=== PATIENT | male | born 1995 | race African-American/Black ===

== ENCOUNTER 2016-10-28 02:43 | Emergency (ER) | payer OTHER ==
[~2016-10-28] VITALS: Ht 165.1 cm; Wt 80.0 kg
[2016-10-28 02:54] VITALS: BP 137/100; PULSE 89; RESP 16; TEMP 98.4; O2SAT 97
[2016-10-28] MEDS ORDERED: SODIUM CHLORIDE 0.9% FLUSH 5 ML FLUSH IVF PRN (03:15)
--- NOTE | 2016-10-28 04:06 | RADRPT ---
EXAM DATE/TIME: 10/28/2016 03:43 [facility] COMPARISON: No previous studies available for comparison. INDICATIONS : Seizure. RADIATION DOSE: 35.95 CTDIvol (mGy) MEDICAL HISTORY : None SURGICAL HISTORY : None. ENCOUNTER: Initial ACUITY: 1 day PAIN SCALE: 3/10 LOCATION: cranial TECHNIQUE: Multiple contiguous axial images were obtained of the head. Using automated exposure control and adj ustment of the mA and/or kV according to patient size, radiation dose was kept as low as reasonably a chievable to obtain optimal diagnostic quality images. FINDINGS: CEREBRUM: The ventricles are normal for age. No evidence of midline shift, mass lesion, hemorrhage or acute in farction. No extra-axial fluid collections are seen. POSTERIOR FOSSA: The cerebellum and brainstem are intact. The 4th ventricle is midline. The cerebellopontine angle i s unremarkable. EXTRACRANIAL: Moderate severity partial opacification of the ethmoid sinuses. Moderate partial opacification of the right sphenoid sinus. SKULL: The calvaria is intact. No evidence of skull fracture. CONCLUSION: 1. No acute intracranial findings. 2. Bilateral ethmoid sinus disease. Right sided sphenoid sinus disease. Pedro Luis Tinsley MD on October 28, 2016 at 4:01 Board Certified Radiologist. This report was verified electronically.
--- NOTE | 2016-10-28 04:09 | PD ---
HPI Chief Complaint: Seizure Time Seen by Provider: 02:57 Travel History International Travel<30 days: No Contact w/Intl Traveler<30days: No Traveled to known affect area: No History of Present Illness HPI Patient is a 21-year-old male who presents to emergency room for evaluation of possible new onset seizure. Patient reports that he was at home, reports that he was annoyed with his housemates, decided to go to bed. Reports that he went to bed and doesn't know what happened after that. Reports that he woke up with his girlfriend at his side who called EMS. Patient's girlfriend reports that she got on top of him and reports that patient was unconsious and began to shake. Reports that patients whole body was shaking for about 4 minutes and resolved on its own. Patient did not have incontinence of urine at that time of seizure. Reports no history of seizures in the past. Patient reports that he currently has a headache, ports that he has never had a seizure in the past. Patient denies any use of drugs or alcohol tonight. Patient denies fevers or chills, patient reports "I feel fine." PFSH Past Medical History ADHD: No Cancer: No Cardiovascular Problems: No Developmental Delay: No Diabetes: No Diminished Hearing: No Endocrine: No Genitourinary: No Musculoskeletal: Yes (right hand fracture X2, RHABDOMYOLYSIS) Psychiatric: No Reproductive: No Respiratory: No Immunizations Current: Yes Migraines: No Seizures: No Thyroid Disease: No Ulcer: No Tetanus Vaccination: Unknown Influenza Vaccination: No Past Surgical History Oral Surgery: Yes (WISDOM TEETH REMOVED) Tonsillectomy: Yes (T+A) Other Surgery: Yes (left knee surgery) Social History Alcohol Use: Yes (COUPLE TIMES PER MONTH) Tobacco Use: Yes (VAPES) Substance Use: No Allergies-Medications (Allergen,Severity, Reaction): Coded Allergies: No Known Allergies (Verified , 10/28/16) Reported Meds & Prescriptions Reported Meds & Active Scripts Active No Active Prescriptions or Reported Medications Review of Systems General / Constitutional: No: Fever Eyes: No: Visual changes HENT: No: Headaches Cardiovascular: No: Chest Pain or Discomfort Respiratory: No: Shortness of Breath Gastrointestinal: No: Abdominal Pain Genitourinary: No: Dysuria Musculoskeletal: No: Pain Skin: No Rash Neurologic: Positive: Headache, Seizures, No: Weakness Psychiatric: No: Depression Endocrine: No: Polydipsia Hematologic/Lymphatic: No: Easy Bruising Physical Exam Narrative GENERAL: No acute distress, nontoxic SKIN: Warm and dry. HEAD: Atraumatic. Normocephalic. EYES: Pupils equal and round. No scleral icterus. No injection or drainage. ENT: No nasal bleeding or discharge. Mucous membranes pink and moist. NECK: Trachea midline. No JVD. CARDIOVASCULAR: Regular rate and rhythm. No murmur appreciated. RESPIRATORY: No accessory muscle use. Clear to auscultation. Breath sounds equal bilaterally. GASTROINTESTINAL: Abdomen soft, non-tender, nondistended. Hepatic and splenic margins not palpable. MUSCULOSKELETAL: No obvious deformities. No clubbing. No cyanosis. No edema. NEUROLOGICAL: Awake and alert. No obvious cranial nerve deficits. Motor grossly within normal limits. Normal speech. PSYCHIATRIC: Appropriate mood and affect; insight and judgment normal. Data Data Last Documented VS Vital Signs Date Time Temp Pulse Resp B/P Pulse Ox O2 Delivery O2 Flow Rate FiO2 10/28/16 02:54 98.4 89 16 137/100 97 10/28/16 02:50 Room Air Orders Complete Blood Count With Diff (10/28/16 03:13) Drug Screen, Random Urine (10/28/16 03:13) Ct Brain W/O Iv Contrast(Rout) (10/28/16 ) Ecg Monitoring (10/28/16 03:13) Iv Access Insert/Monitor (10/28/16 03:13) Comprehensive Metabolic Panel (10/28/16 03:13) Sodium Chloride 0.9% Flush (Ns Flush) (10/28/16 03:15) Ua Includes Microscopic (10/28/16 03:13) Ketorolac Inj (Toradol Inj) (10/28/16 05:30) Labs Laboratory Tests Test 10/28/16 04:00 White Blood Count 8.6 TH/MM3 Red Blood Count 4.86 MIL/MM3 Hemoglobin 12.8 GM/DL Hematocrit 38.1 % Mean Corpuscular Volume 78.4 FL Mean Corpuscular Hemoglobin 26.4 PG Mean Corpuscular Hemoglobin 33.6 % Concent Red Cell Distribution Width 13.4 % Platelet Count 208 TH/MM3 Mean Platelet Volume 8.6 FL Neutrophils (%) (Auto) 55.0 % Lymphocytes (%) (Auto) 27.1 % Monocytes (%) (Auto) 13.3 % Eosinophils (%) (Auto) 4.1 % Basophils (%) (Auto) 0.5 % Neutrophils # (Auto) 4.7 TH/MM3 Lymphocytes # (Auto) 2.3 TH/MM3 Monocytes # (Auto) 1.1 TH/MM3 Eosinophils # (Auto) 0.4 TH/MM3 Basophils # (Auto) 0.0 TH/MM3 CBC Comment DIFF FINAL Differential Comment Sodium Level 142 MEQ/L Potassium Level 4.5 MEQ/L Chloride Level 106 MEQ/L Carbon Dioxide Level 26.9 MEQ/L Anion Gap 9 MEQ/L Blood Urea Nitrogen 12 MG/DL Creatinine 0.98 MG/DL Estimat Glomerular Filtration 118 ML/MIN Rate Random Glucose 102 MG/DL Calcium Level 9.1 MG/DL Total Bilirubin 0.4 MG/DL Aspartate Amino Transf 26 U/L (AST/SGOT) Alanine Aminotransferase 30 U/L (ALT/SGPT) Alkaline Phosphatase 84 U/L Total Protein 7.1 GM/DL Albumin 3.8 GM/DL MDM Medical Decision Making Medical Screen Exam Complete: Yes Emergency Medical Condition: Yes Interpretation(s) Vital Signs Date Time Temp Pulse Resp B/P Pulse Ox O2 Delivery O2 Flow Rate FiO2 10/28/16 02:54 98.4 89 16 137/100 97 10/28/16 02:50 16 98 Room Air Differential Diagnosis Intracranial hemorrhage, intracranial mass, new onset seizure, electrolyte abnormality, alcohol withdrawal seizures Narrative Course 21-year-old male who presents to emergency room for evaluation of possible new onset seizures. Patient had a witnessed episode by his girlfriend of "whole body shaking" which lasted about 4 minutes. As per girlfriend, patient was unconscious during this event. Patient does not remember this episode, reports no history of seizures in the past. Reports that today, everyone in the house is drinking including his girlfriend, denies taking alcohol today. Reports that he does not know if he had a seizure today, reports only a mild headache. Patient denies any dizziness, fevers or chills or vision changes. Patient denies any chest pain or shortness with this time. Plan to obtain CT of the head as well as labs. We'll monitor patient for seizure activity CBC & BMP Diagram 10/28/16 04:[address] 10/28/16 0000 Signed Impressions: Service Date/Time: Friday, October 28, 2016 03:43 - CONCLUSION: 1. No acute intracranial findings. 2. Bilateral ethmoid sinus disease. Right sided sphenoid sinus disease. Pedro Luis Tinsley MD Reviewed all labs and all studies with patient as well as family in detail. Understands that he should not drive or operate heavy machinery as he may have a seizure event. Understands that he needs to be seen by neurologist and cleared before he drives again. Patient will call for earliest follow-up. Patient will also follow up with his primary care doctor. Patient will return to emergency room as needed. Diagnosis Primary Impression: possible seizure Additional Impression: Headache Qualified Code: R51 - Nonintractable headache, unspecified chronicity pattern , unspecified headache type Referrals: Donis Shelton MD Patient Instructions: General Instructions Departure Forms: Tests/Procedures, Work Release Enter return to work date: Nov 02, 2016 Additional Instructions: Please provide patient with a copy of his labwork and CT report at discharge Please follow up with neurologist first thing as soon as possible Please follow up with your primary care doctor as soon as possible Do not drive a car until you're seen and cleared by neurologist Scripts No Active Prescriptions or Reported Meds Disposition: 01 DISCHARGE HOME Condition: Stable Alejandrina Garza DO Oct 28, 2016 04:09
[2016-10-28 04:11] LABS: AUTOMATED NEUTROPHIL # 4.7 TH/MM3 (1.8-7.7); BASOPHIL % 0.5 % (0.0-2.0); EOSINOPHIL # 0.4 TH/MM3 (0-0.4); EOSINOPHIL % 4.1 % (0.0-4.0); HEMATOCRIT 38.1 % (39.0-51.0); HEMO FLAGS DIFF FINAL; LYMPH % 27.1 % (9.0-44.0); LYMPHOCYTE # 2.3 TH/MM3 (1.0-4.8); MEAN CELL VOLUME 78.4 FL (80.0-100.0); MEAN CORPUSCULAR HEMOGLOBIN 26.4 PG (27.0-34.0); MEAN CORPUSCULAR HGB CONC 33.6 % (32.0-36.0); MONO % 13.3 % (0.0-8.0); PLATELET COUNT 208 TH/MM3 (150-450); RED BLOOD COUNT 4.86 MIL/MM3 (4.50-5.90); RED CELL DISTRIBUTION WIDTH 13.4 % (11.6-17.2); WHITE BLOOD COUNT 8.6 TH/MM3 (4.0-11.0)
[2016-10-28 04:31] LABS: ALKALINE PHOSPHATASE 84 U/L (45-117); TOTAL BILIRUBIN ADULT 0.4 MG/DL (0.2-1.0)
[2016-10-28 04:33] LABS: ALT (GPT) 30 U/L (9-52); ANION GAP 9 MEQ/L (5-15); AST (GOT) 26 U/L (15-39); BICARBONATE 26.9 MEQ/L (21.0-32.0); BLOOD UREA NITROGEN 12 MG/DL (7-18); CHLORIDE 106 MEQ/L (98-107); GLOMERULAR FILTRATION RATE 118 ML/MIN (>89); SODIUM (NA) 142 MEQ/L (136-145)
[2016-10-28 04:36] LABS: POTASSIUM 4.5 MEQ/L (3.5-5.1)
[2016-10-28] MEDS ORDERED: KETOROLAC TROMETHAMINE 30 MG/ML (IVP) VIAL IV PUSH ONE (05:30)
== END 2016-10-28 06:36 | disposition home or self-care (01) ==
LOC: NEPE 02:43
DX: R51 Headache (principal); Z72.0 Tobacco use; Z87.39 Personal history of other diseases of the musculoskeletal system and connective tissue
CPT/HCPCS: 70450; 80053; 85025; 96374; 99285; J1885

== ENCOUNTER 2017-05-09 19:10 | Emergency (ER) | payer SELFPAY ==
[~2017-05-09] VITALS: Ht 175.3 cm; Wt 105.5 kg
[2017-05-09 19:13] VITALS: BP 139/71; PULSE 80; RESP 16; TEMP 98.8; O2SAT 100
--- NOTE | 2017-05-09 20:11 | PD ---
HPI . Right hand pain Chief Complaint: Injury Time Seen by Provider: 19:44 Travel History International Travel<30 days: No Contact w/Intl Traveler<30days: No Traveled to known affect area: No History of Present Illness HPI 21-year-old male patient presented to the emergency department for evaluation of right hand pain. Patient sustained injury when he punched a wall earlier this evening. Patient has sustained a boxer fracture twice in the past to his right hand after punching a wall. Patient states this pain feels exactly like it did with a boxer fracture. Patient has no other physiological complaints. Patient denies chest pain, shortness breath, fever, chills, malaise, paresthesias, abdominal pain, nausea, vomiting or lightheadedness. Right radial pulse palpated. Capillary refill within normal limits. PFSH Past Medical History Medical History: Denies Significant Hx ADHD: No Cancer: No Cardiovascular Problems: No Developmental Delay: No Diabetes: No Diminished Hearing: No Endocrine: No Genitourinary: No Musculoskeletal: Yes (right hand fracture X2, RHABDOMYOLYSIS) Psychiatric: No Reproductive: No Respiratory: No Immunizations Current: Yes Migraines: No Seizures: No Thyroid Disease: No Ulcer: No Past Surgical History Oral Surgery: Yes (WISDOM TEETH REMOVED) Tonsillectomy: Yes (T+A) Other Surgery: Yes (left knee surgery) Social History Alcohol Use: Yes (RARELY) Tobacco Use: Yes Substance Use: No Allergies-Medications (Allergen,Severity, Reaction): Coded Allergies: No Known Allergies (Verified , 05/09/17) Reported Meds & Prescriptions Reported Meds & Active Scripts Active No Active Prescriptions or Reported Medications Review of Systems Except as stated in HPI: all other systems reviewed are Neg Physical Exam Narrative GENERAL: Well-nourished well-developed 21-year-old male in no acute distress SKIN: Focused skin assessment warm/dry. HEAD: Atraumatic. Normocephalic. EYES: Pupils equal and round. No scleral icterus. No injection or drainage. ENT: No nasal bleeding or discharge. Mucous membranes pink and moist. NECK: Trachea midline. No JVD. CARDIOVASCULAR: Regular rate and rhythm. No murmur appreciated. Bilateral radial pulses palpated. Capillary refill within normal limits. RESPIRATORY: No accessory muscle use. Clear to auscultation. Breath sounds equal bilaterally. GASTROINTESTINAL: Abdomen soft, non-tender, nondistended. Hepatic and splenic margins not palpable. MUSCULOSKELETAL: No obvious deformities. No clubbing. No cyanosis. No edema. NEUROLOGICAL: Awake and alert. No obvious cranial nerve deficits. Motor grossly within normal limits. Normal speech. PSYCHIATRIC: Appropriate mood and affect; insight and judgment normal. Data Data Last Documented VS Vital Signs Date Time Temp Pulse Resp B/P (MAP) Pulse Ox O2 Delivery O2 Flow Rate FiO2 05/09/17 19:13 98.8 80 16 139/71 (93) 100 Room Air Orders Orders Hand, Complete ([id number]) (05/09/17 19:40) Ice/Cold Pack (05/09/17 19:44) [facility] Medical Decision Making Medical Screen Exam Complete: Yes Emergency Medical Condition: Yes Medical Record Reviewed: Yes Differential Diagnosis Differential diagnoses include but are not limited to right hand contusion, right hand fracture, wrist fracture Narrative Course 21-year-old black male presents to the emergency department for evaluation of right hand pain. Patient punched a wall earlier this evening and his hand has been painful since. Patient has sustained a boxer's fracture twice in the past from punching garcia. Patient states this pain feels like it did when he had boxer's fracture. Radial pulses palpated bilaterally. Capillary fill within normal limits. Patient denies any paresthesias to the hand. X-ray to the right hand ordered and pending. Ice pack applied to right hand. X-ray to the right hand shows no acute fracture or malalignment. Old fracture noted on x-ray. Patient will be discharged home with instructions for RICE therapy. Diagnosis Primary Impression: Contusion of hand, right Qualified Codes: S60.221A - Contusion of right hand, initial encounter Referrals: Primary Care Physician Patient Instructions: Contusion in Adults (DC), General Instructions Additional Instructions: May use ice, elevation and [id number] ibuprofen to alleviate pain the reduce swelling. Don't punch anymore garcia. Please return to emergency department if your symptoms return or worsen. Follow up with your primary care provider. Scripts No Active Prescriptions or Reported Meds Disposition: 01 DISCHARGE HOME Condition: Stable PippaKaela woodall Bella NUR May 09, 2017 20:11
--- NOTE | 2017-05-09 20:29 | RADRPT ---
EXAM DATE/TIME: 05/09/2017 19:58 [facility] COMPARISON: HAND RIGHT COMPLETE ([id number]), October 16, 2012, 19:54. INDICATIONS : Pain at proximal 5th metacarpal from punching wall. History of old fifth metacarpal fracture. MEDICAL HISTORY : None. SURGICAL HISTORY : None. ENCOUNTER: Initial ACUITY: 1 day PAIN SCORE: 5/10 LOCATION: Right hand FINDINGS: Three view examination of the right hand demonstrates no soft tissue swelling, dislocation, or fractu re. The carpal bones appear intact. There is an old fifth metacarpal fracture. The interphalangeal and metacarpophalangeal joints are intact. Bony mineralization is normal. CONCLUSION: 1. No acute fracture or malalignment. 2. Old fracture deformity of the fifth metacarpal. Demetrius Enrique MD on May 09, 2017 at 20:25 Board Certified Radiologist. This report was verified electronically.
== END 2017-05-09 21:29 | disposition home or self-care (01) ==
LOC: NEPD 19:10
DX: S60.221A Contusion of right hand, initial encounter (principal); W22.01XA Walked into wall, initial encounter; Z72.0 Tobacco use
CPT/HCPCS: 73130; 99283

== ENCOUNTER 2017-05-20 13:19 | Emergency (ER) | payer SELFPAY ==
[~2017-05-20] VITALS: Ht 175.3 cm; Wt 100.0 kg
[2017-05-20 13:21] VITALS: BP 205/103; PULSE 76; RESP 15; TEMP 98.2; O2SAT 98
[2017-05-20 13:56] LABS: AUTOMATED NEUTROPHIL # 4.2 TH/MM3 (1.8-7.7); BASOPHIL % 0.4 % (0.0-2.0); EOSINOPHIL # 0.4 TH/MM3 (0-0.4); EOSINOPHIL % 5.2 % (0.0-4.0); HEMATOCRIT 37.7 % (39.0-51.0); HEMO FLAGS DIFF FINAL; LYMPH % 22.2 % (9.0-44.0); LYMPHOCYTE # 1.5 TH/MM3 (1.0-4.8); MEAN CELL VOLUME 76.9 FL (80.0-100.0); MEAN CORPUSCULAR HEMOGLOBIN 26.4 PG (27.0-34.0); MEAN CORPUSCULAR HGB CONC 34.3 % (32.0-36.0); MONO % 10.4 % (0.0-8.0); NEUT % 61.8 % (16.0-70.0); PLATELET COUNT 252 TH/MM3 (150-450); RED BLOOD COUNT 4.91 MIL/MM3 (4.50-5.90); WHITE BLOOD COUNT 6.9 TH/MM3 (4.0-11.0)
[2017-05-20 14:00] LABS: BLOOD, URINE NEG (NEG); COMMENT (UR) CULTURE INDICATED; CULTURE IF INDICATED CULTURE INDICATED; GLUCOSE,URINE NEG (NEG); KETONE, URINE NEG (NEG); MUCUS URINE FEW /lpf (OCC); NITRITE,URINE NEG (NEG); SQUAMOUS EPITHELIAL CELL URINE <1 /hpf (0-5); URINE COLOR YELLOW (YELLW/STRAW)
[2017-05-20 14:14] LABS: BICARBONATE 28.1 MEQ/L (21.0-32.0); POTASSIUM 3.9 MEQ/L (3.5-5.1)
--- NOTE | 2017-05-20 14:22 | PD ---
HPI Chief Complaint: Complaint Time Seen by Provider: 14:20 Travel History International Travel<30 days: No Contact w/Intl Traveler<30days: No Traveled to known affect area: No History of Present Illness HPI 21 year old male presents to the ED for evaluation of darkened urine and pain with urination. This has been over the last 2-3 days. Denies abdominal pain. No fever or chills. Denies penile discharge. Pt reports being in a monogamous relationship and denies any chance of STD. Reports a history of rabdo, and is concerned because his urine was dark then too. Denies and body aches or other symptoms similar to that diagnosis. Has no other symptoms to report. PFSH Past Medical History Medical History: Denies Significant Hx ADHD: No Cancer: No Cardiovascular Problems: No Developmental Delay: No Diabetes: No Diminished Hearing: No Endocrine: No Genitourinary: No Musculoskeletal: Yes (right hand fracture X2, RHABDOMYOLYSIS) Psychiatric: No Reproductive: No Respiratory: No Immunizations Current: Yes Migraines: No Seizures: No Thyroid Disease: No Ulcer: No Tetanus Vaccination: Unknown Influenza Vaccination: No ?: Not Past Surgical History Oral Surgery: Yes (WISDOM TEETH REMOVED) Tonsillectomy: Yes (T+A) Other Surgery: Yes (left knee surgery) Social History Alcohol Use: Yes (ONCE A DAY) Tobacco Use: Yes Substance Use: No Allergies-Medications (Allergen,Severity, Reaction): Coded Allergies: No Known Allergies (Verified , 05/09/17) Reported Meds & Prescriptions Reported Meds & Active Scripts Active Doxycycline Hyclate 100 Mg Cap 100 Mg PO BID Review of Systems Except as stated in HPI: all other systems reviewed are Neg Physical Exam Narrative GENERAL: Well nourished male pt in no acute distress SKIN: Warm and dry. HEAD: Atraumatic. Normocephalic. EYES: Pupils equal and round. No scleral icterus. No injection or drainage. ENT: No nasal bleeding or discharge. Mucous membranes pink and moist. NECK: Trachea midline. No JVD. CARDIOVASCULAR: Regular rate and rhythm. RESPIRATORY: No accessory muscle use. Clear to auscultation. Breath sounds equal bilaterally. GASTROINTESTINAL: Abdomen soft, non-tender, nondistended. Hepatic and splenic margins not palpable. MUSCULOSKELETAL: Extremities without clubbing, cyanosis, or edema. No obvious deformities. NEUROLOGICAL: Awake and alert. No obvious cranial nerve deficits. Motor grossly within normal limits. Five out of 5 muscle strength in the arms and legs. Normal speech. PSYCHIATRIC: Appropriate mood and affect; insight and judgment normal. Data Data Last Documented VS Vital Signs Date Time Temp Pulse Resp B/P (MAP) Pulse Ox O2 Delivery O2 Flow Rate FiO2 05/20/17 16:16 05/20/17 13:55 18 05/20/17 13:21 98.2 76 98 Orders Orders Creatine Kinase (Cpk) (05/20/17 13:27) Complete Blood Count With Diff (05/20/17 13:27) Basic Metabolic Panel (Bmp) (05/20/17 13:27) Urinalysis - C+S If Indicated (05/20/17:27) Urine Culture (05/20/17 13:30) Iv Access Insert/Monitor (05/20/17 14:21) Sodium Chlor 0.9% 1000 Ml Inj (Ns 1000 M (05/20/17 14:30) Gc And Chlamydia Pcr (05/20/17 14:21) Labs Laboratory Tests Test 05/20/17 13:30 05/20/17 13:40 Urine Color YELLOW Urine Turbidity CLEAR Urine pH 8.0 Urine Specific [place] 1.021 Urine Protein TRACE mg/dL Urine Glucose (UA) NEG mg/dL Urine Ketones NEG mg/dL Urine Occult Blood NEG Urine Nitrite NEG Urine Bilirubin NEG Urine Urobilinogen 2.0 MG/DL Urine Leukocyte Esterase LARGE Urine RBC 6 /hpf Urine WBC 62 /hpf Urine Squamous Epithelial Cells <1 /hpf Urine Mucus FEW /lpf Microscopic Urinalysis Comment CULTURE INDICATED Chlamydia trachomatis DNA (PCR) DETECTED Neisseria gonorrhoeae DNA (PCR) DETECTED White Blood Count 6.9 TH/MM3 Red Blood Count 4.91 MIL/MM3 Hemoglobin 12.9 GM/DL Hematocrit 37.7 % Mean Corpuscular Volume 76.9 FL Mean Corpuscular Hemoglobin 26.4 PG Mean Corpuscular Hemoglobin Concent 34.3 % Red Cell Distribution Width 13.0 % Platelet Count 252 TH/MM3 Mean Platelet Volume 8.5 FL Neutrophils (%) (Auto) 61.8 % Lymphocytes (%) (Auto) 22.2 % Monocytes (%) (Auto) 10.4 % Eosinophils (%) (Auto) 5.2 % Basophils (%) (Auto) 0.4 % Neutrophils # (Auto) 4.2 TH/MM3 Lymphocytes # (Auto) 1.5 TH/MM3 Monocytes # (Auto) 0.7 TH/MM3 Eosinophils # (Auto) 0.4 TH/MM3 Basophils # (Auto) 0.0 TH/MM3 CBC Comment DIFF FINAL Differential Comment Blood Urea Nitrogen 8 MG/DL Creatinine 1.09 MG/DL Random Glucose 113 MG/DL Calcium Level 9.2 MG/DL Sodium Level 140 MEQ/L Potassium Level 3.9 MEQ/L Chloride Level 106 MEQ/L Carbon Dioxide Level 28.1 MEQ/L Anion Gap 6 MEQ/L Estimat Glomerular Filtration Rate 105 ML/MIN Total Creatine Kinase 186 U/L MDM Medical Decision Making Medical Screen Exam Complete: Yes Emergency Medical Condition: Yes Medical Record Reviewed: Yes Differential Diagnosis uti vs std vs renal calculi vs dehydration Narrative Course 21 year old male presents to the ED for evaluation. He appears well. VSS. Abdominal exam benign. Penile exam deferred due to g/f and child in room and insistence that STD is not possible. Laboratory Tests Test 05/20/17 13:30 05/20/17 13:40 Urine Color YELLOW Urine Turbidity CLEAR Urine pH 8.0 Urine Specific [place] 1.021 Urine Protein TRACE mg/dL Urine Glucose (UA) NEG mg/dL Urine Ketones NEG mg/dL Urine Occult Blood NEG Urine Nitrite NEG Urine Bilirubin NEG Urine Urobilinogen 2.0 MG/DL Urine Leukocyte Esterase LARGE Urine RBC 6 /hpf Urine WBC 62 /hpf Urine Squamous Epithelial Cells <1 /hpf Urine Mucus FEW /lpf Microscopic Urinalysis Comment CULTURE INDICATED Chlamydia trachomatis DNA (PCR) DETECTED Neisseria gonorrhoeae DNA (PCR) DETECTED White Blood Count 6.9 TH/MM3 Red Blood Count 4.91 MIL/MM3 Hemoglobin 12.9 GM/DL Hematocrit 37.7 % Mean Corpuscular Volume 76.9 FL Mean Corpuscular Hemoglobin 26.4 PG Mean Corpuscular Hemoglobin Concent 34.3 % Red Cell Distribution Width 13.0 % Platelet Count 252 TH/MM3 Mean Platelet Volume 8.5 FL Neutrophils (%) (Auto) 61.8 % Lymphocytes (%) (Auto) 22.2 % Monocytes (%) (Auto) 10.4 % Eosinophils (%) (Auto) 5.2 % Basophils (%) (Auto) 0.4 % Neutrophils # (Auto) 4.2 TH/MM3 Lymphocytes # (Auto) 1.5 TH/MM3 Monocytes # (Auto) 0.7 TH/MM3 Eosinophils # (Auto) 0.4 TH/MM3 Basophils # (Auto) 0.0 TH/MM3 CBC Comment DIFF FINAL Differential Comment Blood Urea Nitrogen 8 MG/DL Creatinine 1.09 MG/DL Random Glucose 113 MG/DL Calcium Level 9.2 MG/DL Sodium Level 140 MEQ/L Potassium Level 3.9 MEQ/L Chloride Level 106 MEQ/L Carbon Dioxide Level 28.1 MEQ/L Anion Gap 6 MEQ/L Estimat Glomerular Filtration Rate 105 ML/MIN Total Creatine Kinase 186 U/L Pt will be treated for UTI however he is aware that GC PCR has been sent and will be contacted if positive and need further treatment. He will be discharged at this time. Diagnosis Primary Impression: UTI (urinary tract infection) Qualified Codes: N30.01 - Acute cystitis with hematuria Referrals: Primary Care Physician Patient Instructions: General Instructions, Urinary Tract Infection in Men (ED) Additional Instructions: Maintain adequate oral hydration Follow-up with your primary care provider Return immediately with any acute worsening of symptoms Med/Other Pt SpecificInfo: Prescription(s) given Scripts Doxycycline Hyclate (Doxycycline Hyclate) 100 Mg Cap 100 MG PO BID for Infection, #20 CAP 0 Refills Prov: Martina 05/20/17 Disposition: 01 DISCHARGE HOME Condition: Stable Martina Sun May 20, 2017 14:22
[2017-05-20] MEDS ORDERED: SODIUM CHLOR 0.9% 1000 ML INJ 1,000 ML IV ONE (14:30)
[2017-05-20] MEDS ORDERED: DOXY100C PO (16:02)
[2017-05-20 17:14] LABS: CHLAMYDIA PCR DETECTED (NOT DETECT); NEISSERIA PCR DETECTED (NOT DETECT)
== END 2017-05-20 16:16 | disposition home or self-care (01) ==
LOC: NEPD 13:19
DX: N30.01 Acute cystitis with hematuria (principal); Z72.0 Tobacco use
CPT/HCPCS: 80048; 81001; 82550; 85025; 87086; 87491; 87591; 96360; 99284; J7030

== ENCOUNTER 2017-06-24 01:34 | Emergency (ER) | payer SELFPAY ==
[~2017-06-24 01:34] MED LIST: DOXY100C PO
[2017-06-24 01:39] VITALS: BP 149/90; PULSE 83; RESP 12; TEMP 97.9; O2SAT 97
[2017-06-24 02:16] LABS: BACTERIA, URINE RARE /hpf; BLOOD, URINE MOD (NEG); GLUCOSE,URINE NEG (NEG); KETONE, URINE NEG (NEG); MUCUS URINE FEW /lpf (OCC); NITRITE,URINE NEG (NEG); SQUAMOUS EPITHELIAL CELL URINE <1 /hpf (0-5); URINE COLOR YELLOW (YELLW/STRAW)
[2017-06-24 02:18] LABS: COMMENT (UR) CULTURE INDICATED; CULTURE IF INDICATED CULTURE INDICATED
[2017-06-24] MEDS ORDERED: AZITHROMYCIN 250 MG TAB PO ONE (03:15)
[2017-06-24] MEDS ORDERED: cefTRIAXone 250 MG VIAL IM ONE (03:15)
--- NOTE | 2017-06-24 03:32 | PD ---
HPI Chief Complaint: Complaint Time Seen by Provider: 02:11 Travel History International Travel<30 days: No Contact w/Intl Traveler<30days: No Traveled to known affect area: No History of Present Illness HPI Patient is a 21-year-old male who was here on May 20 and was treated for a UTI on doxycycline twice a day for 10 days area he took the full course and now symptoms have returned. Where he has dysuria and some suprapubic tenderness. Patient was told that he had a UTI at that time but reading the urine pending and he will be advised if the urine was sent for PCR of GC and Chlamydia and that he'll be notified if there are positive. The test came back positive however apparently he was not notified according to the patient. He is nondiabetic young healthy 21-year-old male with no prostate issues and high suspicion that his urine infection white cells most likely would be from GC or chlamydia. I talk with him and tell him that his urine that was sent on the prior month ago visit did show that he had GC and Chlamydia. And that the medication he was given would not cover the gonorrhea . Patient says he is monogamous with his girlfriend. And is upset with the idea that maybe he could' ve gotten GC and chlamydia from his partner. He Is advised if we treat him for this he must have a talk with his partner. And always use a condom until he tells her that she must be tested and treated as well PFSH Past Medical History ADHD: No Cancer: No Cardiovascular Problems: No Developmental Delay: No Diabetes: No Diminished Hearing: No Endocrine: No Genitourinary: No Musculoskeletal: Yes (right hand fracture X2, RHABDOMYOLYSIS) Psychiatric: No Reproductive: No Respiratory: No Immunizations Current: Yes Migraines: No Seizures: No Thyroid Disease: No Ulcer: No Past Surgical History Oral Surgery: Yes (WISDOM TEETH REMOVED) Tonsillectomy: Yes (T+A) Other Surgery: Yes (left knee surgery) Social History Alcohol Use: Yes (rare) Tobacco Use: No Substance Use: No Allergies-Medications (Allergen,Severity, Reaction): Coded Allergies: No Known Allergies (Verified Adverse Reaction, Unknown, 06/24/17) Reported Meds & Prescriptions Reported Meds & Active Scripts Active No Active Prescriptions or Reported Medications Physical Exam Narrative GENERAL: non toxic no distress SKIN: Warm and dry. HEAD: Atraumatic. Normocephalic. EYES: Pupils equal and round. No scleral icterus. No injection or drainage. ENT: No nasal bleeding or discharge. Mucous membranes pink and moist. NECK: Trachea midline. No JVD. CARDIOVASCULAR: Regular rate and rhythm. RESPIRATORY: No accessory muscle use. Clear to auscultation. Breath sounds equal bilaterally. GASTROINTESTINAL: Abdomen soft, non-tender, nondistended. Hepatic and splenic margins not palpable. MUSCULOSKELETAL: Extremities without clubbing, cyanosis, or edema. No obvious deformities. NEUROLOGICAL: Awake and alert. No obvious cranial nerve deficits. Motor grossly within normal limits. Five out of 5 muscle strength in the arms and legs. Normal speech. PSYCHIATRIC: Appropriate mood and affect; insight and judgment normal. Data Data Last Documented VS Vital Signs Date Time Temp Pulse Resp B/P (MAP) Pulse Ox O2 Delivery O2 Flow Rate FiO2 06/24/17 05:27 06/24/17 01:39 97.9 83 12 97 Room Air Orders Orders Urinalysis - C+S If Indicated (06/24/17 01:50) Urine Culture (06/24/17 01:56) Gc And Chlamydia Pcr (06/24/17 02:49) Azithromycin (Zithromax) (06/24/17 03:15) Ceftriaxone Inj (Rocephin Inj) (06/24/17 03:15) Ed Discharge Order (06/24/17 05:28) Labs Laboratory Tests Test 06/24/17 01:56 Urine Color YELLOW Urine Turbidity HAZY Urine pH 6.0 Urine Specific O'Brien 1.036 Urine Protein 30 mg/dL Urine Glucose (UA) NEG mg/dL Urine Ketones NEG mg/dL Urine Occult Blood MOD Urine Nitrite NEG Urine Bilirubin NEG Urine Urobilinogen 2.0 MG/DL Urine Leukocyte Esterase LARGE Urine RBC 15 /hpf Urine WBC 35 /hpf Urine Squamous Epithelial Cells <1 /hpf Urine Bacteria RARE /hpf Urine Mucus FEW /lpf Urine Sperm RARE Microscopic Urinalysis Comment CULTURE INDICATED Chlamydia trachomatis DNA (PCR) NOT DETECTED Neisseria gonorrhoeae DNA (PCR) DETECTED MDM Medical Decision Making Medical Screen Exam Complete: Yes Emergency Medical Condition: Yes Differential Diagnosis Urinary tract infection with committee or gonorrhea versus regular urologic pathogens Narrative Course Patient counseled about the fact that he was not treated for gonorrhea and he probably still has symptoms of that doxycycline cover the chlamydia but he continues to have symptoms DF a PCR of the Chlamydia gonorrhea urine shows that he has gonorrhea we will benefits counselor him about using condoms and refraining from unprotected sex until his sexual partners treated Diagnosis Primary Impression: Sexually transmitted disease in male Patient Instructions: General Instructions, Gonorrhea (ED) Scripts No Active Prescriptions or Reported Meds Disposition: 01 DISCHARGE HOME Condition: Harshal Walker MD Jun 24, 2017 03:32
[2017-06-24 04:38] LABS: CHLAMYDIA PCR NOT DETECTED (NOT DETECT); NEISSERIA PCR DETECTED (NOT DETECT)
== END 2017-06-24 05:38 | disposition home or self-care (01) ==
LOC: NEPC 01:34
DX: A54.01 Gonococcal cystitis and urethritis, unspecified (principal)
CPT/HCPCS: 81001; 87086; 87491; 87591; 96372; 99284; J0696